=== PATIENT | male | born 1995 | race Caucasian/White ===

== ENCOUNTER 2024-07-18 10:19 | Inpatient (IN) | payer OTHER ==
[~2024-07-18] VITALS: Ht 193 cm; Wt 78.9 kg
[2024-07-18 11:45] VITALS: BP 127/64; PULSE 76; RESP 18; TEMP 98.3; O2SAT 98
[2024-07-18] MEDS: ACETAMINOPHEN 325 MG TABLET PO SCH ×2 (16:01→20:18)
[2024-07-18] MEDS: GABAPENTIN 300 MG CAPSULE PO SCH (16:02)
[2024-07-18] MEDS: METHOCARBAMOL 500 MG TABLET PO SCH (16:02)
[2024-07-18 19:08] LABS: APPEARANCE,URINE CLEAR (CLEAR); BILIRUBIN,URINE NEGATIVE (NEGATIVE); COLOR,URINE LIGHT YELLOW (YELLOW); GLUCOSE, URINE (UA) NEGATIVE (NEGATIVE); KETONES,URINE NEGATIVE (NEGATIVE); LEUKOCYTE ESTERASE ,URINE NEGATIVE (NEGATIVE); NITRATE,URINE NEGATIVE (NEGATIVE); OCCULT BLOOD,URINE NEGATIVE (NEGATIVE); PROTEIN,URINE NEGATIVE (NEGATIVE); SPECIFIC GRAVITIY, URINE 1.022 (1.003-1.030); UROBILINOGEN,URINE <=1.0 mg/dL (<=1.0)
[2024-07-18 20:00] VITALS: BP 135/65; PULSE 85; RESP 18; TEMP 98.2; O2SAT 100
[2024-07-18] MEDS: ETHYL ALCOHOL 62% ANTISEPTIC NASAL SANITIZER 0.6 ML AMPUL NASAL SCH (20:08)
[2024-07-18] MEDS: DOCUSATE SODIUM 100 MG CAPSULE PO SCH (20:09)
[2024-07-18] MEDS: OxyCODONE HCL 5 MG IR TABLET PO PRN (21:11)
[2024-07-18 21:34] VITALS: O2SAT 100
[2024-07-19 08:00] VITALS: BP 134/53; PULSE 92; RESP 18; TEMP 98.4; O2SAT 100
[2024-07-19] MEDS: POLYETHYLENE GLYCOL 3350 17 GM PACKET PO SCH (08:16)
[2024-07-19] MEDS: ASPIRIN 325 MG DR TABLET PO SCH (08:16)
[2024-07-19 08:41] LABS: EOSINOPHILS % (AUTO) 3.2 % (1.0-6.0); HEMATOCRIT 30.7 % (41-53); HEMOGLOBIN 10.2 g/dL (13.5-17.5); LYMPHOCYTES # (AUTO) 1.2 K/uL (1.0-4.8); LYMPHOCYTES % (AUTO) 17.8 % (22.0-44.0); MEAN CORPUSCULAR HEMOGLOBIN 30.4 pg (26.0-34.0); MEAN CORPUSCULAR HGB CONC 33.3 G/dL (31.0-37.0); MEAN CORPUSCULAR VOLUME 91 fL (80-100); MONOCYTES # (AUTO) 0.6 K/uL (0.1-1.0); MONOCYTES % (AUTO) 8.9 % (2.0-9.0); NEUTROPHILS # (AUTO) 4.7 K/uL (1.8-7.7); NEUTROPHILS % (AUTO) 69.1 % (40.0-70.0); PLATELET COUNT (AUTO) 638 K/uL (150-450); RED BLOOD CELL COUNT(AUTO) 3.37 MIL/uL (4.50-5.90); RED CELL DISTRIBUTION WIDTH 14.8 % (11.5-14.5); WHITE BLOOD COUNT (AUTO) 6.7 K/uL (4.5-11.0)
[2024-07-19 08:59] LABS: ALANINE AMINOTRANSFERASE 103 U/L (12-78); ALBUMIN 3.5 g/dL (3.4-5.0); ALKALINE PHOSPHATASE 275 U/L (46-116); ANION GAP 5 mmol/L (8-16); ASPARTATE AMINOTRANSFERASE 59 U/L (15-37); BILIRUBIN,TOTAL 0.9 mg/dL (0.1-1.0); CALCIUM, TOTAL 8.7 mg/dL (8.8-10.5); CARBON DIOXIDE 30 mmol/L (22-29); CHLORIDE 102 mmol/L (98-107); CREATININE 0.89 mg/dL (0.60-1.30); GLOMERULAR FILTR. RATE CALC > 60 mL/min (>60); GLUCOSE,RANDOM 124 mg/dL (70-110); POTASSIUM 4.3 mmol/L (3.5-5.1); SODIUM SERUM 137 mmol/L (136-145); TOTAL PROTEIN, SERUM 7.3 g/dL (6.4-8.2); UREA NITROGEN, BLOOD 15 mg/dL (7-18)
[2024-07-19 20:40] VITALS: BP 133/67; PULSE 85; RESP 18; TEMP 98.7; O2SAT 100
[2024-07-19 22:52] VITALS: O2SAT 100
[2024-07-20 08:13] VITALS: O2SAT 98
[2024-07-20 09:11] VITALS: BP 127/63; PULSE 85; RESP 18; TEMP 98.2; O2SAT 100
[2024-07-20 19:46] VITALS: BP 124/65; PULSE 83; RESP 18; TEMP 98.3; O2SAT 98
[2024-07-20 23:33] VITALS: O2SAT 98
[2024-07-21 08:01] VITALS: BP 129/66; PULSE 84; RESP 18; TEMP 98.8; O2SAT 98
[2024-07-21 13:25] VITALS: O2SAT 98
[2024-07-21 20:30] VITALS: BP 127/66; PULSE 83; RESP 18; TEMP 98.6; O2SAT 98
[2024-07-21 20:43] VITALS: O2SAT 98
[2024-07-21] MEDS ORDERED: ASPI-989 PO (22:21)
[2024-07-21] MEDS ORDERED: GABA-1181 PO (22:21)
[2024-07-21] MEDS ORDERED: METH-659 PO (22:21)
[2024-07-22 08:00] VITALS: BP 134/76; PULSE 95; RESP 19; TEMP 98.3; O2SAT 98
[2024-07-22] MEDS: ACETAMINOPHEN 325 MG TABLET PO PRN (16:20)
[2024-07-22 20:10] VITALS: BP 119/57; PULSE 89; RESP 18; TEMP 99; O2SAT 98
[2024-07-22] MEDS: MELATONIN 5 MG TABLET PO PRN (20:31)
[2024-07-23 08:00] VITALS: BP 128/71; PULSE 93; RESP 19; TEMP 97.9; O2SAT 100
[2024-07-23 20:00] VITALS: BP 129/66; PULSE 81; RESP 18; TEMP 98; O2SAT 99
[2024-07-23 23:24] VITALS: O2SAT 99
[2024-07-24 08:00] VITALS: BP 128/71; PULSE 79; RESP 19; TEMP 98.6; O2SAT 100
[2024-07-24 08:00] LABS: BASOPHILS % (AUTO) 1.8 % (0.0-2.0); EOSINOPHILS % (AUTO) 5.4 % (1.0-6.0); HEMATOCRIT 34.3 % (41-53); HEMOGLOBIN 11.4 g/dL (13.5-17.5); LYMPHOCYTES # (AUTO) 1.3 K/uL (1.0-4.8); LYMPHOCYTES % (AUTO) 30.8 % (22.0-44.0); MEAN CORPUSCULAR HEMOGLOBIN 30.5 pg (26.0-34.0); MEAN CORPUSCULAR HGB CONC 33.3 G/dL (31.0-37.0); MEAN CORPUSCULAR VOLUME 92 fL (80-100); MONOCYTES # (AUTO) 0.6 K/uL (0.1-1.0); PLATELET COUNT (AUTO) 598 K/uL (150-450); RED BLOOD CELL COUNT(AUTO) 3.75 MIL/uL (4.50-5.90); RED CELL DISTRIBUTION WIDTH 15.1 % (11.5-14.5); WHITE BLOOD COUNT (AUTO) 4.1 K/uL (4.5-11.0)
[2024-07-24 08:15] LABS: ALANINE AMINOTRANSFERASE 39 U/L (12-78); ALBUMIN 3.7 g/dL (3.4-5.0); ALKALINE PHOSPHATASE 396 U/L (46-116); ANION GAP 5 mmol/L (8-16); ASPARTATE AMINOTRANSFERASE 22 U/L (15-37); BILIRUBIN,TOTAL 0.9 mg/dL (0.1-1.0); CALCIUM, TOTAL 8.7 mg/dL (8.8-10.5); CARBON DIOXIDE 32 mmol/L (22-29); CHLORIDE 104 mmol/L (98-107); GLOMERULAR FILTR. RATE CALC > 60 mL/min (>60); GLUCOSE,RANDOM 90 mg/dL (70-110); POTASSIUM 4.2 mmol/L (3.5-5.1); SODIUM SERUM 141 mmol/L (136-145); TOTAL PROTEIN, SERUM 7.5 g/dL (6.4-8.2); UREA NITROGEN, BLOOD 11 mg/dL (7-18)
[2024-07-24] MEDS ORDERED: METHOCARBAMOL 500 MG TABLET PO PRN (11:30)
[2024-07-24 20:00] VITALS: BP 134/65; PULSE 86; RESP 18; TEMP 97.9; O2SAT 100
[2024-07-25 08:00] VITALS: BP 137/73; PULSE 80; RESP 19; TEMP 98.5; O2SAT 100
== END 2024-07-25 09:00 | disposition home or self-care (01) | DRG 964 ==
LOC: 2WR 12:15
PROVIDERS: ADMIT Physical Medicine & Rehabilitation; ATTEND Physical Medicine & Rehabilitation
DX: S06.9XAA Unspecified intracranial injury with loss of consciousness status unknown, initial encounter (principal); S22.32XA Fracture of one rib, left side, initial encounter for closed fracture; S36.031A Moderate laceration of spleen, initial encounter; S32.038A Other fracture of third lumbar vertebra, initial encounter for closed fracture; S32.9XXA Fracture of unspecified parts of lumbosacral spine and pelvis, initial encounter for closed fracture; S27.0XXA Traumatic pneumothorax, initial encounter; S02.5XXA Fracture of tooth (traumatic), initial encounter for closed fracture; K21.9 Gastro-esophageal reflux disease without esophagitis; V89.2XXA Person injured in unspecified motor-vehicle accident, traffic, initial encounter; S27.322A Contusion of lung, bilateral, initial encounter; D64.9 Anemia, unspecified; D75.839 Thrombocytosis, unspecified; Z74.09 Other reduced mobility; G43.909 Migraine, unspecified, not intractable, without status migrainosus; R20.0 Anesthesia of skin; R26.9 Unspecified abnormalities of gait and mobility; R41.89 Other symptoms and signs involving cognitive functions and awareness; R74.8 Abnormal levels of other serum enzymes; R53.81 Other malaise; Y93.89 Activity, other specified; Y92.89 Other specified places as the place of occurrence of the external cause; Y99.8 Other external cause status; Z82.49 Family history of ischemic heart disease and other diseases of the circulatory system
CPT/HCPCS: 80053; 81003; 85025; 87081; 92507; 92508; 92523; 93970; 97110; 97116; 97140; 97150; 97163; 97167; 97530; 97535; 99366